=== PATIENT | female | born 1945 | race Caucasian/White ===

== ENCOUNTER → 2016-11-17 | Outpatient (CLI) | payer MEDICARE ==
[2016-11-17 14:55] LABS: ALT 30 U/L (9-52); AST 28 U/L (14-36); Alkaline Phosphatase 104 U/L (38-126); Anion Gap 8 mmol/L; Blood Urea Nitrogen 11 mg/dL (7-17); Calcium 9.8 mg/dL (8.4-10.2); Carbon Dioxide 30 mmol/L (22-30); Chloride 103 mmol/L (98-107); Glucose 78 mg/dL (74-99); Non-African American GFR(MDRD) >60 (>60 ml/min/1.73 sqM); Potassium 4.9 mmol/L (3.5-5.1); Sodium 141 mmol/L (137-145); Total Bilirubin 0.4 mg/dL (0.2-1.3)
[2016-11-20 15:35] LABS: Mis test requested (Blood) C TELOPEPTIDE CTX
[2016-11-20 17:50] LABS: Creatinine Urine Random 25.3 mg/dL (20.0-320.0)
== END ==
LOC: LABWHC1 14:14
PROVIDERS: ATTEND Internal Medicine Endocrinology, Diabetes & Metabolism
DX: M81.8 Other osteoporosis without current pathological fracture (principal)
CPT/HCPCS: 36415; 80053; 82306; 82523; 83970

== ENCOUNTER → 2017-05-31 | Outpatient (CLI) | payer MEDICARE ==
[2017-05-31 09:15] LABS: ALT 34 U/L (9-52); AST 28 U/L (14-36); Alkaline Phosphatase 94 U/L (38-126); Anion Gap 11 mmol/L; Blood Urea Nitrogen 13 mg/dL (7-17); Calcium 10.4 mg/dL (8.4-10.2); Carbon Dioxide 29 mmol/L (22-30); Chloride 103 mmol/L (98-107); Glucose 106 mg/dL (74-99); Non-African American GFR(MDRD) >60 (>60 ml/min/1.73 sqM); Potassium 4.8 mmol/L (3.5-5.1); Sodium 143 mmol/L (137-145); Total Bilirubin 0.2 mg/dL (0.2-1.3); Total Protein 7.5 g/dL (6.3-8.2)
== END | disposition home or self-care (01) ==
LOC: LABWHC1 08:10
PROVIDERS: ATTEND Internal Medicine Endocrinology, Diabetes & Metabolism
DX: R73.03 Prediabetes (principal); M81.0 Age-related osteoporosis without current pathological fracture
CPT/HCPCS: 36415; 80053; 82306; 82523; 83036; 83970; 84443

== ENCOUNTER → 2017-06-07 | Outpatient (CLI) | payer MEDICARE ==
[2017-06-07 16:38] LABS: Basophils # (A) 0.1 k/uL (0-0.2); Basophils % (A) 1 %; CHCM 31.4; Eosinophils # (A) 0.3 k/uL (0-0.7); Eosinophils % (A) 3 %; HCT 39.5 % (34.0-46.0); HDW 2.16; HGB 12.5 gm/dL (11.4-16.0); Luc # (Auto) 0.18; Luc % (Auto) 2; Lymphocytes # (A) 2.4 k/uL (1.0-4.8); Lymphocytes % (A) 32 %; MCH 29.3 pg (25.0-35.0); MCHC 31.6 g/dL (31.0-37.0); MCV 92.7 fL (80.0-100.0); Monocytes # (A) 0.6 k/uL (0-1.0); Monocytes % (A) 8 %; Neutrophils % (A) 54 %; RBC 4.26 m/uL (3.80-5.40); RDW 14.1 % (11.5-15.5); WBC 7.5 k/uL (3.8-10.6); WBC (Perox) 7.44
== END | disposition home or self-care (01) ==
LOC: LABWHC1 15:34
PROVIDERS: ATTEND Internal Medicine
DX: J45.51 Severe persistent asthma with (acute) exacerbation (principal); E88.01 Alpha-1-antitrypsin deficiency
CPT/HCPCS: 36415; 82103; 82104; 85025

== ENCOUNTER → 2017-09-08 | Outpatient (CLI) | payer MEDICARE ==
[2017-09-08 16:47] LABS: ALT 31 U/L (9-52); AST 32 U/L (14-36); Albumin 4.6 g/dL (3.5-5.0); Alkaline Phosphatase 142 U/L (38-126); Anion Gap 13 mmol/L; Blood Urea Nitrogen 16 mg/dL (7-17); Calcium 10.1 mg/dL (8.4-10.2); Carbon Dioxide 30 mmol/L (22-30); Chloride 97 mmol/L (98-107); Glucose 83 mg/dL (74-99); Potassium 4.8 mmol/L (3.5-5.1); Sodium 140 mmol/L (137-145); Total Bilirubin 0.3 mg/dL (0.2-1.3); Total Protein 7.8 g/dL (6.3-8.2)
[2017-09-09 00:57] LABS: Vitamin D 25 Hydroxy 38.4 ng/mL (30.0-100.0)
[2017-09-09 01:02] LABS: Parathyroid Hormone Intact 35.4 pg/mL (14.0-72.0)
[2017-09-11 17:05] LABS: Creatinine Urine Random 43.5 mg/dL (20.0-320.0)
== END | disposition home or self-care (01) ==
LOC: LABWHC1 15:41
PROVIDERS: ATTEND Internal Medicine Endocrinology, Diabetes & Metabolism
DX: M81.0 Age-related osteoporosis without current pathological fracture (principal)
CPT/HCPCS: 36415; 80053; 82306; 82523; 83970; 84443

== ENCOUNTER 2017-11-26 05:58 | Day surgery (SDC) | payer MEDICARE ==
[2017-11-23 15:17] VITALS: BMI 37.3
--- NOTE | 2017-11-25 08:44 | HP ---
HISTORY AND PHYSICAL CHIEF COMPLAINT: Right shoulder pain. HISTORY OF PRESENT ILLNESS: The patient is a 72-year-old, right-hand dominant, retired female who presents with progressive right shoulder pain after a previous fall in September of 2009 off a ladder. She is having pain with overhead use and at night. She has tried medications and injections with only partial temporary relief. PAST MEDICAL HISTORY: Significant for heart disease, depression, arthritis, hypertension, and asthma. PAST SURGICAL HISTORY: Significant for right total knee arthroplasty. CURRENT MEDICATIONS: Advair, Carvedilol, Lasix, Aleve, Forteo. ALLERGIES: She notes allergies to AMOXICILLIN and BROMO QUININE. FAMILY HISTORY: Significant for heart disease and cancer. SOCIAL HISTORY: Significant for previous tobacco use; however, she quit in 2002. 16 POINT REVIEW OF SYSTEMS: Otherwise reviewed and is noncontributory. PHYSICAL EXAMINATION: The patient is approximately 5 foot 5, 230 pounds of endomorphic habitus. HEENT exam is nonfocal. Neck is supple. On examination of her right shoulder, she has tenderness about the anterior subacromial space. She has mild subacromial crepitus. Active range of motion, forward elevation 150 degrees, external rotation with the arm side 65 degrees, internal rotation to T12. Motor strength is 5-/5 for external rotation with the arms at side, 4+/5 for abduction. Impingement test and Speed tests are positive. Her distal neurovascular exam otherwise appears intact in the right upper extremity. MRI report for the right shoulder from 10/22/2017 shows a tear of the supraspinatus tendon along with some retraction. There is also partial infraspinatus tear and a possible biceps rupture. IMPRESSION: 1. Right shoulder impingement with symptomatic rotator cuff tear. 2. Right shoulder possible biceps rupture. RECOMMENDATIONS: I talked to the patient regarding her condition and her treatment options. At this point, she remains quite symptomatic despite conservative measures. After a thorough discussion, she opts to proceed with surgery. We will plan to proceed with arthroscopic evaluation with possible subacromial decompression, rotator cuff repair, and possible biceps tenotomy versus debridement. Risks and benefits were discussed at length in layman's terms. We will likely perform that as an outpatient procedure. MMODL / IJN: [id number] /
[~2017-11-26 05:58] MED LIST: DEXAMETHASONE SOD PHOSPHATE 10 MG/ML 1 ML VIAL IV ONE; LACTATED RINGERS 1,000 ML IV SCH; MIDAZOLAM 2 MG/2 ML VIAL IV PRN; MORPHINE SULFATE 4 MG/ML SYRINGE IV PRN; ONDANSETRON 4 MG/2 ML VIAL IVP ONE; SCOPOLAMINE 1.5MG/72HR PATCH TRANSDERM ONE; ceFAZolin IN SWFI 2 GM/20 ML SYRINGE IVP ONE
[2017-11-26] MEDS ORDERED: LIDOCAINE 1% 20 ML VIAL (10MG/ML) FOR IV START INTRADERMA ONE (06:46)
[2017-11-26 06:48] LABS: Glucose,Whole Blood 107 mg/dL (75-99)
[2017-11-26 07:13] LABS: Potassium 4.5 mmol/L (3.5-5.1)
[2017-11-26] MEDS ORDERED: HYDROCORTISONE SUCCINATE 100 MG/2 ML VIAL IV ONE (07:16)
[2017-11-26] MEDS ORDERED: PROPOFOL 10 MG/ML 20 ML VIAL IV ONE (07:53)
[2017-11-26] MEDS ORDERED: MIDAZOLAM 2 MG/2 ML VIAL ONE (07:53)
[2017-11-26] MEDS ORDERED: SUCCINYLCHOLINE CHLORIDE 100 MG/5 ML SYR IV ONE (07:53)
[2017-11-26] MEDS ORDERED: LIDOCAINE 1% INJ 10MG/ML (20 ML MDV) ONE (07:53)
[2017-11-26] MEDS ORDERED: ePHEDrine SULFATE/0.9% NACL/PF 50 MG/5 ML SYRINGE IV ONE (07:53)
[2017-11-26] MEDS ORDERED: PHENYLEPHRINE-0.9% NACL SYG 1 MG/10 ML SYRINGE ONE (07:53)
[2017-11-26] MEDS ORDERED: fentaNYL (PF) 50 MCG/ML 2 ML AMP ONE (07:53)
[2017-11-26] MEDS ORDERED: EPINEPHrine (PF) 1 ML in SODIUM CHLORIDE 0.9% IRRIGATIO 3,000 ML IRRIGATION ONE ×7 (08:28→08:29)
--- NOTE | 2017-11-26 09:22 | P.OP ---
Date of Procedure: 11/26/17 Preoperative Diagnosis: Right shoulder symptomatic rotator cuff tear Postoperative Diagnosis: 4 cm right rotator cuff tear, rupture long head of the biceps, grade 2 chondral injury superior humeral head Procedure(s) Performed: Right shoulder arthroscopic subacromial decompression/arthroscopic rotator cuff repair/humeral head chondroplasty/biceps debridement Implants: Arthrex 4.75 mm swivel lock anchor 4 Anesthesia: [facility], [facility] Surgeon: Bobby Garcia Fruit Worker #1: Rick Rudolph Estimated Blood Loss (ml): 10 Pathology: none sent Condition: stable Disposition: PACU Indications for Procedure: The patient's a 72-year-old female who presents with progressive right shoulder pain secondary to a rotator cuff tear despite conservative measures. A discussion of the risks and benefits of operative intervention versus continued conservative measures was made with the patient. She opted to proceed with surgery. Operative risks to include infection, neurovascular injury, development of blood clots, possible tendon rerupture, and possible need for subsequent procedures was discussed. Informed consent was obtained. Operative Findings: As below Description of Procedure: The patient was brought to the operating room, and after induction of general anesthesia was placed in a beachchair position. The bony prominences were appropriately padded. I examined the right shoulder. There was no gross block to passive motion. There was no gross glenohumeral instability. The right upper extremity was prepped and draped in a normal fashion. The bony outlines the acromion, coracoid process, distal clavicle were outlined with a skin marker. The glenohumeral joint was inflated with 50 mL of saline utilizing a spinal needle from posterior approach. A posterior portal was made through a 5 mm skin incision 1 cm medial and inferior to the posterior lateral border of the acromion. A blunt trocar was used to easily into the joint. Diagnostic arthroscopy was performed. An anterior portal was made lateral to the coracoid process entering the joint above the subscapularis tendon. The subscapularis tendon appear to be intact. The long head of the biceps appear to be ruptured involving the intra-articular portion. The remnant was debrided back to stable base with a motorized shaver. A grade 2 chondral injury was noted involving the superior/posterior portion of the humeral head. There was a loose chondral fragment debrided back to stable base with a motorized shaver. The anterior labrum was intact. Minimal degenerative changes were noted involving the glenohumeral joint. The tibial cuff was inspected, and the supraspinatus/infraspinatus was ruptured with mild retraction off the greater tuberosity. The posterior portion cuff appeared intact. The inferior recess was inspected. The arthroscope was then placed into the subacromial space. A lateral portals made through a 5 mm skin incision 2 cm lateral to the anterolateral border acromion. The soft tissue on the undersurface of the acromion was debrided with a motorized shaver and with electrocautery clearly defining the anterior medial and lateral borders as well as distal clavicle. An anterior inferior acromioplasty is performed with a motorized monica starting anterolateral, then extending this posteriorly, then extending this medially. Is able to convert to a flat acromion. This is verified from the posterior and lateral viewing portals. The greater tuberosity was lightly decorticated with a motorized bur down to bleeding bony surface. The rotator cuff was easily brought back to the greater tuberosity mobilized. An accessory superior lateral portal was made through a 5 mm skin incision just off the lateral edge of the acromion. The appropriate starting awl was utilized just off the articular surface. 4.75 mm anchors were then placed just off the articular surface. Loaded with #2 fiber tape. 2 anchors were utilized. The fiber tape was then passed through the rotator cuff with a scorpion suture passer. These were then crisscrossed and a lateral row was created utilizing 2 4.75 millimeters anchor. The sutures were appropriately tensioned. Good purchase was obtained. Final arthroscopic view showed adequate compression of the rotator cuff on the greater tuberosity and the zuni footprint. The arthroscope was then removed. The portals were closed with simple 3-0 nylon suture. A sterile dressing was applied in addition to an abductor brace. The patient was then awoken from general anesthesia and transferred to recovery room in good condition. Blood loss was estimated at 10 mL. No complications were incurred. Sponge and needle counts were correct at the end of the case.
[2017-11-26 09:34] VITALS: TEMP 96.9
[2017-11-26 09:36] VITALS: RESP 16
[2017-11-26] MEDS: MEPERIDINE 50 MG/ML SYRINGE IVP ONE ×2 (09:40→10:04)
[2017-11-26] MEDS ORDERED: diphenhydrAMINE 50 MG/ML 1 ML VIAL IVP ONE (09:41)
[2017-11-26 10:36] LABS: Glucose,Whole Blood 143 mg/dL (75-99)
[2017-11-26] MEDS ORDERED: HYDROcodone/APAP 7.5-325MG 1 EACH TAB PO ONE (10:56)
[2017-11-26 11:23] VITALS: BP 113/76; PULSE 69
== END 2017-11-26 11:47 | disposition home or self-care (01) ==
LOC: OR 05:58
PROVIDERS: ATTEND Orthopaedic Surgery
DX: M75.101 Unspecified rotator cuff tear or rupture of right shoulder, not specified as traumatic (principal); S46.111A Strain of muscle, fascia and tendon of long head of biceps, right arm, initial encounter; M25.811 Other specified joint disorders, right shoulder; M75.41 Impingement syndrome of right shoulder; M94.211 Chondromalacia, right shoulder; Z88.0 Allergy status to penicillin; J44.9 Chronic obstructive pulmonary disease, unspecified; I10 Essential (primary) hypertension; Z99.81 Dependence on supplemental oxygen; K21.9 Gastro-esophageal reflux disease without esophagitis; Z79.1 Long term (current) use of non-steroidal anti-inflammatories (NSAID); Z79.52 Long term (current) use of systemic steroids; Z79.899 Other long term (current) drug therapy; F32.9 Major depressive disorder, single episode, unspecified; M19.90 Unspecified osteoarthritis, unspecified site; Z96.651 Presence of right artificial knee joint; Z88.8 Allergy status to other drugs, medicaments and biological substances; Z87.891 Personal history of nicotine dependence
CPT/HCPCS: 80051; 29827; 29826; 29822; C1713 ×2; C1894; J2250; J1200; J1100; J1720; J2175; J2405; J0171; J2001; J3010; J2370; J0330; J2704; J0690

== ENCOUNTER → 2017-12-22 | Outpatient (CLI) | payer MEDICARE ==
[2017-12-22 09:27] LABS: ALT 32 U/L (9-52); AST 27 U/L (14-36); Albumin 4.4 g/dL (3.5-5.0); Alkaline Phosphatase 95 U/L (38-126); Anion Gap 13 mmol/L; Blood Urea Nitrogen 12 mg/dL (7-17); Carbon Dioxide 29 mmol/L (22-30); Chloride 100 mmol/L (98-107); Glucose 103 mg/dL (74-99); Potassium 4.7 mmol/L (3.5-5.1); Sodium 142 mmol/L (137-145); Total Bilirubin 0.3 mg/dL (0.2-1.3); Total Protein 7.2 g/dL (6.3-8.2)
[2017-12-22 15:45] LABS: Parathyroid Hormone Intact 30.8 pg/mL (14.0-72.0)
[2017-12-22 17:04] LABS: Vitamin D 25 Hydroxy 28.4 ng/mL (30.0-100.0)
[2017-12-22 17:33] LABS: Hemoglobin A1C 6.3 % (4.0-6.0)
== END | disposition home or self-care (01) ==
LOC: LABWHC1 08:10
PROVIDERS: ATTEND Internal Medicine Endocrinology, Diabetes & Metabolism
DX: M81.0 Age-related osteoporosis without current pathological fracture (principal); R73.03 Prediabetes
CPT/HCPCS: 36415; 80053; 82306; 82523; 83036; 83970; 84443

== ENCOUNTER 2018-02-25 09:54 | Day surgery (SDC) | payer MEDICARE ==
[2018-02-24 10:00] VITALS: BMI 37.5
--- NOTE | 2018-02-24 10:41 | HP ---
HISTORY AND PHYSICAL CHIEF COMPLAINT: Right fifth digit pain. HISTORY OF PRESENT ILLNESS: The patient is a 72-year-old, right-hand dominant, retired female, who presents after falling injuring her right hand on 02/22/2018. She fell off her riding elephant keeper in her yard. She had initial deformity of her finger. Her primary care physician tried to realign this. She denies previous injury. PAST MEDICAL HISTORY: Significant for heart disease, asthma, depression, arthritis, and hypertension. PAST SURGICAL HISTORY: Significant for right total knee arthroplasty along with recent right shoulder surgery. FAMILY HISTORY: Significant for heart disease and cancer. SOCIAL HISTORY: Significant for previous tobacco use; however, she quit in 2002. CURRENT MEDICATIONS: 1. Advair. 2. Carvedilol. 3. Lasix. 4. Aleve. 5. Forteo. She has allergies to AMOXICILLIN and BROMO QUININE. PHYSICAL EXAMINATION: Patient is approximately 5 foot 5, 233 pounds of endomorphic habitus. HEENT exam is nonfocal. Neck is supple. She is nontender about the right shoulder, elbow and wrist. On examination of right hand, she has moderate/large dorsal swelling over the fourth and fifth digits. She is tender over the proximal phalanx of the fifth digit with ulnar deviation angulation of the distal aspect. No rotational abnormalities noted. She has moderate digital stiffness and weakness. Her distal neurovascular exam appears intact in the right digits. X-rays of the right hand obtained in the office show a fifth digit, proximal phalanx fracture with significant angulation and displacement. IMPRESSION: Right ring finger proximal phalanx fracture-displaced and angulated. RECOMMENDATIONS: I talked to the patient regarding her condition and treatment options. At this point, she opts to proceed with surgery. We will plan to proceed with closed reduction with percutaneous pinning. We will likely perform that as an outpatient procedure. Risks and benefits were discussed at length in layman's terms. MMODL / IJN: [id number] /
[~2018-02-25 09:54] MED LIST changes: -LACTATED RINGERS 1,000 ML IV SCH; -MORPHINE SULFATE 4 MG/ML SYRINGE IV PRN; -SCOPOLAMINE 1.5MG/72HR PATCH TRANSDERM ONE; +fentaNYL (PF) 50 MCG/ML 2 ML AMP IV PRN
[2018-02-25 10:36] VITALS: TEMP 98.1
[2018-02-25] MEDS ORDERED: LIDOCAINE 1% 20 ML VIAL (10MG/ML) FOR IV START INTRADERMA ONE (10:50)
[2018-02-25] MEDS: LACTATED RINGERS 1,000 ML IV SCH ×2 (10:51→11:26)
[2018-02-25 10:57] LABS: Glucose,Whole Blood 92 mg/dL (75-99)
[2018-02-25] MEDS ORDERED: KETAMINE 10 MG/ML 20 ML VIAL ONE (11:28)
[2018-02-25] MEDS ORDERED: PROPOFOL 10 MG/ML 20 ML VIAL IV ONE (11:28)
[2018-02-25] MEDS ORDERED: fentaNYL (PF) 50 MCG/ML 2 ML AMP ONE (11:28)
[2018-02-25] MEDS ORDERED: GLYCOPYRROLATE 0.2 MG/ML 2 ML VIAL ONE (11:28)
[2018-02-25] MEDS ORDERED: MIDAZOLAM 2 MG/2 ML VIAL ONE (11:28)
--- NOTE | 2018-02-25 12:13 | P.OP ---
Date of Procedure: 02/25/18 Preoperative Diagnosis: Right fifth digit displaced proximal phalanx fracture Postoperative Diagnosis: Same Procedure(s) Performed: Closed reduction with percutaneous pinning right fifth digit proximal phalanx fracture/digital block right fifth digit Implants: 0.045 inch K wire 2 Anesthesia: MAC, local Surgeon: Bobby Garcia Estimated Blood Loss (ml): 1 Pathology: none sent Condition: stable Disposition: PACU Indications for Procedure: The patient is a 72-year-old female who presents after falling injuring her right hand with a displaced right fifth digit proximal phalanx fracture. A discussion of the risks and benefits of conservative measures versus operative intervention was made with patient. She opted to proceed with surgery. Operative risks to include infection, neurovascular injury, development of nonunion, development of malunion, and possible need for subsequent procedures was discussed. Informed consent was obtained. Operative Findings: As below Description of Procedure: The patient was brought to the operating room, and after induction of IV sedation, I placed a digital block in the right fifth digit utilizing 10 mL of 2 % plain lidocaine. The right upper extremity was then prepped and draped in normal fashion. The fracture was reduced with longitudinal traction and manipulation. This is verified with fluoroscopy. 2 K wires measuring 0.045 inch in diameter were then placed in the proximal phalanx starting distally spanning the fracture site. Final fluoroscopic views to include AP, lateral and oblique views showed adequate reduction of the fracture and placement of the implants. The pins were clipped below the level skin. A sterile dressing was applied in addition to an ulnar gutter splint. The patient was then awoken from sedation and transferred to recovery room in good condition. Blood loss estimated at 1 mL. No complications were incurred.
[2018-02-25 12:25] VITALS: BP 118/74; PULSE 78; RESP 18
--- NOTE | 2018-02-25 14:15 | FL ---
EXAMINATION TYPE: FL guidance operating room, XR finger RT DATE OF EXAM: 02/25/2018 COMPARISON: NONE HISTORY: 72-year-old female fifth finger fracture FINDINGS: Percutaneous pinning across the patient's fifth proximal phalangeal fracture. FLUOROSCOPY Fluoroscopy time of 36 seconds was used during percutaneous finger pinning. 3 image/s document/s the procedure. IMPRESSION: Intraoperative fluoroscopy as above.
== END 2018-02-25 12:41 | disposition home or self-care (01) ==
LOC: OR 09:54
PROVIDERS: ATTEND Orthopaedic Surgery
DX: S62.616A Displaced fracture of proximal phalanx of right little finger, initial encounter for closed fracture (principal); W28.XXXA Contact with powered lawn mower, initial encounter; Y92.096 Garden or yard of other non-institutional residence as the place of occurrence of the external cause; I11.9 Hypertensive heart disease without heart failure; F32.9 Major depressive disorder, single episode, unspecified; M19.90 Unspecified osteoarthritis, unspecified site; J44.9 Chronic obstructive pulmonary disease, unspecified; E11.9 Type 2 diabetes mellitus without complications; F41.9 Anxiety disorder, unspecified; K21.9 Gastro-esophageal reflux disease without esophagitis; Z79.1 Long term (current) use of non-steroidal anti-inflammatories (NSAID); Z79.84 Long term (current) use of oral hypoglycemic drugs; Z79.51 Long term (current) use of inhaled steroids; Z79.899 Other long term (current) drug therapy; Z88.0 Allergy status to penicillin; Z88.8 Allergy status to other drugs, medicaments and biological substances; Z90.710 Acquired absence of both cervix and uterus; Z87.891 Personal history of nicotine dependence
CPT/HCPCS: 73140; 26727; C1713; J2250; J1100; J2405; J3010; J2704; J0690

== ENCOUNTER 2018-04-15 10:02 | Day surgery (SDC) | payer MEDICARE ==
[2018-04-11 16:13] VITALS: BMI 37.5
--- NOTE | 2018-04-14 10:28 | HP ---
HISTORY AND PHYSICAL CHIEF COMPLAINT: Right small finger pain. HISTORY OF PRESENT ILLNESS: The patient is a 73-year-old, right-hand dominant, retired female who underwent closed reduction and pinning of a right small finger proximal phalanx fracture February 25, 2018. Clinically, she was noted at the night of the fracture; however, having has irritation secondary to the hardware. PAST MEDICAL HISTORY: Significant for heart disease, asthma, depression, hypertension, and arthritis. PAST SURGICAL HISTORY: Significant for right total knee arthroplasty in addition to closed reduction and pinning, right small finger proximal phalanx fracture. CURRENT MEDICATIONS: 1. Lasix. 2. Aleve. 3. Forteo. 4. Advair. ALLERGIES: She notes allergies to AMOXICILLIN and BROMO QUININE. FAMILY HISTORY: Significant for heart disease and cancer. SOCIAL HISTORY: Significant for previous tobacco use; however, she quit in 2002. 16 POINT REVIEW OF SYSTEMS: Otherwise reviewed and is noncontributory. PHYSICAL EXAMINATION: On examination, the patient is approximately 5 foot 5, 233 pounds of endomorphic habitus. HEENT exam is nonfocal. Neck is supple. She is nontender about the right shoulder, elbow, and wrist. On examination of her right hand, she has mild swelling of the right fifth digit. She is tender over the dorsal pins over the proximal phalanx. She has moderate digital stiffness. No rotational abnormalities noted. X-rays of the right small finger obtained in the office show a fifth digit proximal phalanx fracture in reasonable alignment with [address] IMPRESSION: 1. Status post closed reduction and pinning, right fifth digit proximal phalanx fracture. 2. Irritating hardware, right fifth digit. RECOMMENDATIONS: I talked to the patient at length regarding her condition and treatment options. At this point, she is symptomatic and opts to proceed with removal of her hardware. We will likely perform that utilizing local anesthetic and IV sedation as an outpatient procedure. MMODL / IJN: [id number] /
[~2018-04-15 10:02] MED LIST changes: -DEXAMETHASONE SOD PHOSPHATE 10 MG/ML 1 ML VIAL IV ONE; +HYDROmorphone 0.5 MG/0.5 ML SYRINGE IVP PRN; +LACTATED RINGERS 1,000 ML IV SCH; +LIDOCAINE 1% 20 ML VIAL (10MG/ML) FOR IV START INTRADERMA PRN; -MIDAZOLAM 2 MG/2 ML VIAL IV PRN; -fentaNYL (PF) 50 MCG/ML 2 ML AMP IV PRN
[2018-04-15 10:22] VITALS: RESP 18; TEMP 98.3
[2018-04-15 10:29] LABS: Glucose,Whole Blood 94 mg/dL (75-99)
[2018-04-15] MEDS ORDERED: KETAMINE 10 MG/ML 20 ML VIAL ONE (11:31)
[2018-04-15] MEDS ORDERED: PROPOFOL 10 MG/ML 20 ML VIAL IV ONE (11:31)
[2018-04-15] MEDS ORDERED: MIDAZOLAM 2 MG/2 ML VIAL ONE (11:31)
[2018-04-15] MEDS ORDERED: fentaNYL (PF) 50 MCG/ML 2 ML AMP ONE (11:31)
[2018-04-15] MEDS ORDERED: LIDOCAINE 2% INJ 20 MG/ML SQ ONE ×2 (11:42)
--- NOTE | 2018-04-15 11:56 | P.OP ---
Date of Procedure: 04/15/18 Preoperative Diagnosis: Irritative hardware right fifth digit Postoperative Diagnosis: Same Procedure(s) Performed: Removal K wire 2 right fifth digit proximal phalanx Anesthesia: MAC, local Surgeon: Bobby Garcia Estimated Blood Loss (ml): 1 Pathology: none sent Condition: stable Disposition: PACU Indications for Procedure: The patient's a 73-year-old female who previously underwent closed reduction with percutaneous pinning of her right fifth digit proximal phalanx fracture with subsequent healing the fracture however irritation because of the hardware. A discussion of the risks and benefits of its removal was made with patient. She opted to proceed. Operative risks were discussed, informed consent was obtained. Operative Findings: As below Description of Procedure: The patient was brought to the operating room, and after induction of IV sedation the right upper extremity was prepped and draped in normal fashion. 2 mL of 2% plain lidocaine injected into the right fifth digit along its dorsum. 2 small stab incisions were made along the dorsum of the PIP joint over the palpable hardware. The soft tissues were bluntly dissected. Both K wires were easily removed. The wounds were irrigated normal saline. The skin was reapproximated with Steri-Strips. A sterile dressing was applied. The patient was awoken from sedation and transferred to the recovery room in good condition. Blood loss was estimated at 1 mL. No complications were incurred.
[2018-04-15 12:33] VITALS: BP 115/68; PULSE 71
== END 2018-04-15 12:43 | disposition home or self-care (01) ==
LOC: OR 10:02
PROVIDERS: ATTEND Orthopaedic Surgery
DX: T84.89XA Other specified complication of internal orthopedic prosthetic devices, implants and grafts, initial encounter (principal); I10 Essential (primary) hypertension; F32.9 Major depressive disorder, single episode, unspecified; K21.9 Gastro-esophageal reflux disease without esophagitis; J44.9 Chronic obstructive pulmonary disease, unspecified; E11.9 Type 2 diabetes mellitus without complications; M19.90 Unspecified osteoarthritis, unspecified site; Z79.899 Other long term (current) drug therapy; Z79.51 Long term (current) use of inhaled steroids; Z79.1 Long term (current) use of non-steroidal anti-inflammatories (NSAID); Y83.8 Other surgical procedures as the cause of abnormal reaction of the patient, or of later complication, without mention of misadventure at the time of the procedure; Z88.0 Allergy status to penicillin; Z88.8 Allergy status to other drugs, medicaments and biological substances; Z87.891 Personal history of nicotine dependence; Z79.84 Long term (current) use of oral hypoglycemic drugs; Z96.651 Presence of right artificial knee joint
CPT/HCPCS: 26320; J2001; J2250; J2405; J3010; J2704; J0690

== ENCOUNTER → 2018-05-18 | Outpatient (CLI) | payer MEDICARE ==
[2018-05-18 11:43] LABS: Albumin 4.4 g/dL (3.80-4.90); Albumin/Globulin Ratio 1.91 (1.20-2.10); Anion Gap 11.8 mmol/L (4.00-12.00); Carbon Dioxide 28.2 mmol/L (21.6-31.8); Globulin 2.3 g/dL (2.1-3.7); Potassium 4.9 mmol/L (3.5-5.5); Total Bilirubin 0.4 mg/dL (0.2-1.2); Total Protein 6.7 g/dL (6.2-8.2)
[2018-05-18 11:49] LABS: Vitamin D 25 Hydroxy 37.4 ng/mL (30.0-100.0)
== END | disposition home or self-care (01) ==
LOC: LABWHC1 07:06
PROVIDERS: ATTEND Internal Medicine Endocrinology, Diabetes & Metabolism
DX: E11.9 Type 2 diabetes mellitus without complications (principal); M81.0 Age-related osteoporosis without current pathological fracture
CPT/HCPCS: 36415; 80053; 82306; 82523; 83970; 84443

== ENCOUNTER → 2018-11-26 | Outpatient (CLI) | payer MEDICARE ==
[2018-11-26 17:28] LABS: Vitamin D 25 Hydroxy 48.7 ng/mL (30.0-100.0)
[2018-11-26 17:47] LABS: Parathyroid Hormone Intact 26.9 pg/mL (14.0-72.0)
[2018-11-26 18:11] LABS: Albumin 4.5 g/dL (3.80-4.90); Albumin/Globulin Ratio 1.96 (1.60-3.17); Anion Gap 9.4 mmol/L (4.00-12.00); Calcium 9.7 mg/dL (8.7-10.3); Carbon Dioxide 28.6 mmol/L (21.6-31.8); Globulin 2.3 g/dL (1.6-3.3); LDL Cholesterol,Calculated 107.2 mg/dL (0.0-131.0); Potassium 4.6 mmol/L (3.5-5.5); Total Bilirubin 0.3 mg/dL (0.3-1.2); Total Protein 6.8 g/dL (6.2-8.2); VLDL Calculation 31.8 mg/dL (5.00-40.00)
[2018-11-26 20:25] LABS: Hemoglobin A1C 6.2 % (4.0-6.0)
== END | disposition home or self-care (01) ==
LOC: LABWHC1 08:46
PROVIDERS: ATTEND Internal Medicine Endocrinology, Diabetes & Metabolism
DX: E11.9 Type 2 diabetes mellitus without complications (principal); M81.0 Age-related osteoporosis without current pathological fracture
CPT/HCPCS: 36415; 80053; 80061; 82043; 82306; 82523; 82570; 83036; 83970; 84443

== ENCOUNTER → 2019-03-23 | Outpatient (CLI) | payer MEDICARE ==
[2019-03-23 16:02] LABS: Albumin 4.5 g/dL (3.80-4.90); Albumin/Globulin Ratio 2.14 (1.60-3.17); Anion Gap 7.4 mmol/L (4.00-12.00); Calcium 9.4 mg/dL (8.7-10.3); Carbon Dioxide 29.6 mmol/L (21.6-31.8); Globulin 2.1 g/dL (1.6-3.3); LDL Cholesterol,Calculated 58.8 mg/dL (0.0-131.0); Potassium 4.7 mmol/L (3.5-5.5); Total Bilirubin 0.4 mg/dL (0.3-1.2); Total Protein 6.6 g/dL (6.2-8.2); VLDL Calculation 31.2 mg/dL (5.00-40.00)
[2019-03-23 18:46] LABS: Hemoglobin A1C 6.1 % (4.0-6.0)
== END | disposition home or self-care (01) ==
LOC: LABWHC1 09:34
PROVIDERS: ATTEND Internal Medicine Endocrinology, Diabetes & Metabolism
DX: E11.9 Type 2 diabetes mellitus without complications (principal)
CPT/HCPCS: 36415; 80053; 80061; 82043; 82570; 83036; 84443

== ENCOUNTER → 2019-04-27 | Outpatient (CLI) | payer MEDICARE ==
[~2019-04-27] MED LIST changes: +DENOSUMAB 60 MG/ML 1 ML SYRINGE SQ ONE; -HYDROmorphone 0.5 MG/0.5 ML SYRINGE IVP PRN; -LACTATED RINGERS 1,000 ML IV SCH; -LIDOCAINE 1% 20 ML VIAL (10MG/ML) FOR IV START INTRADERMA PRN; -ONDANSETRON 4 MG/2 ML VIAL IVP ONE; -ceFAZolin IN SWFI 2 GM/20 ML SYRINGE IVP ONE
[2019-04-27 13:48] VITALS: BP 156/97; PULSE 70; RESP 16; TEMP 98.1
== END | disposition home or self-care (01) ==
LOC: PROCWHC3 13:31
PROVIDERS: ATTEND Internal Medicine Endocrinology, Diabetes & Metabolism
DX: M81.0 Age-related osteoporosis without current pathological fracture (principal)
CPT/HCPCS: 96372; J0897

== ENCOUNTER → 2019-07-31 | Outpatient (CLI) | payer MEDICARE | END | disposition home or self-care (01) | LOC: LABPAT 15:17 | PROVIDERS: ATTEND Orthopaedic Surgery | DX: Z01.812 Encounter for preprocedural laboratory examination (principal) | CPT/HCPCS: 87070 ==

== ENCOUNTER 2019-08-08 09:10 | Day surgery (SDC) | payer MEDICARE ==
[2019-08-01 15:48] VITALS: BMI 37.6
--- NOTE | 2019-08-05 10:31 | HP ---
HISTORY AND PHYSICAL CHIEF COMPLAINT: Left knee pain. HISTORY OF PRESENT ILLNESS: The patient is a 74-year-old retired female who presents with progressive left knee pain for the past several years. It has worsened recently. She is having severe anterior medial pain with weightbearing activities. She also notes night symptoms. She has been limping. She has tried medications and activity modifications without much relief. PAST MEDICAL HISTORY: Significant for asthma, coronary artery disease, depression, hypertension, and arthritis. PAST SURGICAL HISTORY: Significant for right total knee arthroplasty, finger fracture fixation. CURRENT MEDICATIONS: 1. Advair. 2. Lasix. 3. Aleve. 4. Forteo. 5. Paroxetine. ALLERGIES: She has allergies to AMOXICILLIN along with BROMO QUININE. FAMILY HISTORY: Significant for heart disease, COPD, and cancer. SOCIAL HISTORY: Significant for previous tobacco use, however, she quit in 2002. REVIEW OF SYSTEMS: Sixteen-point review of systems otherwise reviewed and is noncontributory. PHYSICAL EXAMINATION: On examination, the patient is approximately 5 feet 5 inches, 240 pounds of endomorphic habitus. HEENT exam is nonfocal. Neck is supple. She has painless passive motion of the left hip. Straight leg raise is negative. Active motion left knee -10 to 120 degrees of flexion. She has a moderate effusion. She is tender about the medial joint line. Collaterals are stable, Danuta is negative, Kandice's is equivocal. She has genu varum alignment. Her distal neurovascular exam appears intact in the left lower extremity. Previous weightbearing notch lateral and Merchant views of left knee obtained in the office show severe medial patellofemoral compartment narrowing. IMPRESSION: 1. Left knee severe medial patellofemoral compartment osteoarthrosis. I. 2. Increased body mass index. RECOMMENDATIONS: I talked to the patient at length regarding her condition and treatment options. At this point, she is quite symptomatic despite conservative measures. After thorough discussion, she opts to proceed with surgery. We will plan to proceed with left total knee arthroplasty. Risks and benefits were discussed at length in layman's terms. We will institute DVT prophylaxis postoperatively. MMODL / IJN: [id number] /
[~2019-08-08 09:10] MED LIST changes: +ACETAMINOPHEN TAB 500 MG TAB PO ONE; -DENOSUMAB 60 MG/ML 1 ML SYRINGE SQ ONE; +DEXAMETHASONE SOD PHOSPHATE 10 MG/ML 1 ML VIAL IV ONE; +HYDROmorphone 0.5 MG/0.5 ML SYRINGE IVP PRN; +LIDOCAINE 1% 20 ML VIAL (10MG/ML) FOR IV START INTRADERMA PRN; +MELOXICAM 7.5 MG TAB PO ONE; +MIDAZOLAM 2 MG/2 ML VIAL IV PRN; +ONDANSETRON 4 MG/2 ML VIAL IVP ONE; +SCOPOLAMINE 1.5MG/72HR PATCH TRANSDERM ONE; +TRANEXAMIC ACID 1,000 MG in SODIUM CHLORIDE 0.9% 100 ML IVPB ONE
[2019-08-08] MEDS ORDERED: ROPIVACAINE 246.25 MG, EPINEPHrine 0.5 MG, KETOROLAC 30 MG, cloNIDine HCL/PF 80 MCG, WA... MISCELLANE ONE ×5 (09:55)
[2019-08-08] MEDS: LACTATED RINGERS 1,000 ML IV SCH (09:55)
[2019-08-08 09:56] LABS: Glucose,Whole Blood 110 mg/dL (75-99)
[2019-08-08 10:08] LABS: Prothrombin Time 10.1 sec (9.0-12.0)
[2019-08-08] MEDS ORDERED: fentaNYL (PF) 50 MCG/ML 2 ML AMP ONE (10:34)
[2019-08-08] MEDS ORDERED: LIDOCAINE 1% INJ 10MG/ML (20 ML MDV) ONE (10:34)
[2019-08-08] MEDS ORDERED: PROPOFOL 10 MG/ML 20 ML VIAL IV ONE (10:34)
[2019-08-08] MEDS ORDERED: TRANEXAMIC ACID 1,000 MG/10 ML VIAL ONE (10:34)
[2019-08-08] MEDS ORDERED: SODIUM CHLORIDE 0.9% 100 ML BAG ONE (10:34)
[2019-08-08] MEDS ORDERED: PHENYLEPHRINE-0.9% NACL SYG 1 MG/10 ML SYRINGE ONE (10:34)
[2019-08-08] MEDS ORDERED: MIDAZOLAM 2 MG/2 ML VIAL ONE (10:34)
[2019-08-08] MEDS ORDERED: ceFAZolin 3,000 MG in SODIUM CHLORIDE 0.9% IRRIGATIO 3,000 ML IRRIGATION ONE (11:06)
[2019-08-08] MEDS ORDERED: LACTATED RINGERS 1,000 ML IV ONE (11:55)
[2019-08-08] MEDS ORDERED: traMADol 50 MG TAB PO PRN (12:21)
[2019-08-08] MEDS ORDERED: ONDANSETRON 4 MG/2 ML VIAL IVP PRN (12:21)
[2019-08-08] MEDS ORDERED: MAGNESIUM HYDROXIDE 2,400 MG/10 ML CUP PO PRN (12:21)
[2019-08-08] MEDS ORDERED: NALOXONE 0.4 MG/ML 1 ML VIAL IV PRN (12:21)
[2019-08-08] MEDS ORDERED: HYDROmorphone 0.5 MG/0.5 ML SYRINGE IVP PRN ×2 (12:21)
[2019-08-08] MEDS ORDERED: HYDROcodone/APAP 5-325MG 1 EACH TAB PO PRN (12:21)
[2019-08-08] MEDS ORDERED: ACETAMINOPHEN TAB 325 MG TAB PO PRN (12:21)
--- NOTE | 2019-08-08 12:42 | P.OP ---
Date of Procedure: 08/08/19 Preoperative Diagnosis: Left knee severe tricompartmental osteoarthrosis Postoperative Diagnosis: Same Procedure(s) Performed: Left total knee arthroplastycementedposterior stabilized Implants: Depuy Attune size 6 neuro femoral component, 5 tibial component, 10 mm articular surface, 32 mm cemented patellar component. This is a posterior stabilized implant. Anesthesia: regional, local, spinal Surgeon: Bobby Garcia Shirt Creaser #1: Rick Rudolph Estimated Blood Loss (ml): 50 Pathology: other (Bone fragments) Condition: stable Disposition: PACU Indications for Procedure: The patient is a 74-year-old female who presents with progressive left knee pain secondary to osteoarthrosis despite conservative measures. A discussion of the risks and benefits of operative intervention versus continued conservative measures was made with patient. She opted proceed with surgery. Operative risks to include infection, neurovascular injury, development blood clots, fracture, component loosening, component failure and possible need for subsequent procedures was discussed. Informed consent was obtained. Operative Findings: As below Description of Procedure: The patient was brought to the operating room, and after induction of spinal anesthesia the left lower extremity was prepped and draped in a normal fashion. The tourniquet was inflated to 270 mm marker. A longitudinal incision extending 3 finger breaths above the superior pole of patella extending to the medial aspect the tibial tubercle was then made. The skin and subcutaneous tissues were divided sharply. Electrocautery was used for hemostasis. A medial parapatellar arthrotomy was performed. The medial soft tissues to include the superficial and deep portions of the medial collateral ligament were elevated subperiosteally. The patella was everted. A portion of the retropatellar fat pad was excised sharply. The anterior cruciate ligament was sacrificed. Blunt retractors were placed. A starting hole was made in the distal femur 1 cm anterior to the posterior cruciate ligament origin. An intramedullary femoral guide was then inserted planning on 5 valgus distal cut with 9 mm distal resection. The cutting block was pinned in place. The distal cut was then made. The posterior referencing sizing guide was utilized. I felt size 6 narrow was most appropriate. 3 of external rotation was built into the system and verified off the trans-epicondylar axis and the posterior condyles. The cutting block was pinned in place. The anterior, posterior, and chamfer cuts then made. Bone fragments were removed. The intercondylar guide was placed and the notch cut was made with a sagittal saw. The bone block was removed in one fragment. The trial component was then placed. There is good anterior to posterior and medial to lateral fit. The distal peg holes were drilled. The trial component was removed. Attention was then paid towards preparing the proximal femur. An extra medullary guide was utilized in line with the tibial shaft and second metatarsal distally. I planned on 2 mm resection from the medial compartment. The cutting block was pinned in place. The proximal tibial cut was then made. The bone was removed in one fragment. The remnants of the medial and lateral menisci were excised at the capsular junction with electrocautery. The tibia sized most appropriately at size 5. The trial femoral and tibial components were placed along with a 10 mm articular surface. I was able to obtain full flexion and extension with internal and external rotation. After several flexion and extension cycles, the tibial rotation was marked with electrocautery line with the medial one third of the tibial tubercle. Attention was then paid towards preparing the patella. A patella reamer was utilized taking stem to 14 mm of bone stock. A good flush cut was made. The patella sized most appropriately 32 mm. The peg holes were drilled. The trial components placed. I had good patellofemoral tracking with no hands technique. The trial components were then removed. The tibia was prepared in the appropriate rotation with appropriate drill and keel punch. The posterior osteophytes were removed with a curved osteotome. The flexion and extension gaps were checked and felt to be symmetric at 10 mm. A trial components were then removed. The posterior soft tissues were injected with ropivacaine. The bony surfaces were prepared with pulsatile lavage and dried. The tibial component was then cemented place was fully seated. Excess cement was removed. The femoral component cemented place and was fully seated. Excess cement was removed. The trial 10 mm articular surface was placed and the knee was put in full extension. The patella component was cemented place. After the cement had sufficiently hardened, the knee was again taken through a range of motion. Again I was able to obtain full flexion and extension with varus and valgus stress. The trial 10 mm articular surface was removed and the final one inserted. This was fully seated. Care was taken to avoid any soft tissue interposition. Pulsatile lavage was again utilized. The medial parapatellar arthrotomy was closed with #2 Ethibond suture. The tourniquet was deflated with approximately 65 minutes total tourniquet time. Final hemostasis was obtained with the cautery. There was minimal bleeding therefore a deep drain was not placed. The subcutaneous tissues were reapproximated with interrupted 2-0 Vicryl sutures. The skin was reapproximated with 3-0 subcuticular strata fix suture. Skin tape and adhesive was applied. A sterile dressing was applied. The patient was awoken from sedation and transferred to recovery room in good condition. Blood loss was estimated at 50 mL. No complications were incurred. Sponge and needle counts were correct at the end of the case. Willis BAH assisted during the major components of this case to include exposure, bone resection, implantation, and closure..
--- NOTE | 2019-08-08 13:02 | XR ---
EXAMINATION TYPE: XR knee limited LT DATE OF EXAM: 08/08/2019 COMPARISON: NONE TECHNIQUE: Two views submitted HISTORY: Post op FINDINGS: There is a prosthetic knee in near anatomic alignment. There is soft tissue edema and emphysema. IMPRESSION: 1. Postoperative change. Appears in near-anatomic alignment
[2019-08-08] MEDS ORDERED: ROPIVACAINE 0.2%-NS ON-Q PUMP 1,090 MG, EMPTY PAIN BALL 1 EACH MISCELLANE PRN (13:17)
[2019-08-08 13:33] LABS: Glucose,Whole Blood 152 mg/dL (75-99)
--- NOTE | 2019-08-08 14:12 | P.ANPRN ---
Procedure Note - Anesthesia - Nerve Block Performed Left Adductor Canal Infusion Time Out Performed: Yes ([id number]) Date of Procedure: 08/08/19 Procedure Start Time: 09:59 Procedure Stop Time: 10:07 Location of Patient: PreOp Indication: Acute Post-Operative Pain, Requested by Surgeon Specifically requested for management of pain by : Bobby Garcia Sedation Type: Sedate with meaningful contact maintained Preparation: Sterile Prep Position: Supine Catheter Depth at Skin (cm): 7 Catheter: Indwelling Needle Types: Pajunk Needle Gauge: 20 Ultrasound used to visualize needle placement: Yes Ultrasound used to observe medication spread: Yes Injectate: 0.5% Ropivacaine (see comment for volume) (20cc) Blood Aspirated: No Pain Paresthesia on Injection Noted: No Resistance on Injection: Normal Image Stored and Saved: Yes Events: Uneventful and Well Tolerated
[2019-08-08] MEDS: SODIUM CHLORIDE 0.9% 1,000 ML IV SCH (14:59)
[2019-08-08 16:47] LABS: Glucose,Whole Blood 170 mg/dL (75-99)
[2019-08-08 20:04] LABS: Glucose,Whole Blood 168 mg/dL (75-99)
[2019-08-08] MEDS: INSULIN ASPART (NovoLOG) 100 UNIT/ML VIAL SQ SCH (20:12)
[2019-08-08] MEDS: FLUTICASONE 50MCG/SPRAY NASAL 16GM EA NOSTRIL SCH (20:13)
[2019-08-08] MEDS: ALBUTEROL NEBULIZED 2.5 MG/3 ML INHALATION SCH (20:21)
[2019-08-08] MEDS: BUDESONIDE 0.5 MG/2 ML NEBU INHALATION SCH (20:21)
[2019-08-08] MEDS ORDERED: LATANOPROST 0.005% OPHTH DROPS 2.5 ML BTL BOTH EYES SCH (21:00)
[2019-08-08] MEDS ORDERED: SENNOSIDES-DOCUSATE SODIUM 1 EACH TAB PO SCH (21:00)
[2019-08-08] MEDS ORDERED: MONTELUKAST 10 MG TAB PO SCH (21:00)
[2019-08-08] MEDS ORDERED: SUCRALFATE 1 GM TAB PO SCH (21:00)
[2019-08-08] MEDS ORDERED: PANTOPRAZOLE 40 MG TABLET PO SCH (21:00)
[2019-08-08] MEDS: HYDROcodone/APAP 5-325MG 1 EACH TAB PO PRN (21:51)
[2019-08-09] MEDS: SODIUM CHLORIDE 0.9% 1,000 ML IV SCH (05:04)
[2019-08-09] MEDS: HYDROcodone/APAP 5-325MG 1 EACH TAB PO PRN ×2 (05:38→11:26)
[2019-08-09] MEDS: LACTATED RINGERS 1,000 ML IV SCH (06:59)
[2019-08-09 07:05] LABS: Glucose,Whole Blood 116 mg/dL (75-99)
[2019-08-09 07:06] LABS: Basophils % (A) 0 %; Eosinophils % (A) 0 %; HCT 34.3 % (34.0-46.0); HGB 10.6 gm/dL (11.4-16.0); Lymphocytes # (A) 1.4 k/uL (1.0-4.8); Lymphocytes % (A) 13 %; MCH 28.7 pg (25.0-35.0); MCHC 30.8 g/dL (31.0-37.0); MCV 93.2 fL (80.0-100.0); Mean Platelet Volume 6.9; Monocytes # (A) 0.6 k/uL (0-1.0); Monocytes % (A) 5 %; Neutrophils # (A) 8.6 k/uL (1.3-7.7); Neutrophils % (A) 80 %; Platelet Count 175 k/uL (150-450); RBC 3.68 m/uL (3.80-5.40); RDW 13.4 % (11.5-15.5); WBC 10.8 k/uL (3.8-10.6)
[2019-08-09] MEDS: INSULIN ASPART (NovoLOG) 100 UNIT/ML VIAL SQ SCH ×2 (07:14→11:59)
[2019-08-09 07:28] VITALS: BP 107/60; RESP 18; TEMP 97.8
[2019-08-09] MEDS ORDERED: CARVEDILOL 6.25 MG TAB PO SCH (07:30)
[2019-08-09] MEDS: FLUTICASONE 50MCG/SPRAY NASAL 16GM EA NOSTRIL SCH (07:36)
[2019-08-09] MEDS ORDERED: ERGOCALCIFEROL 50,000 UNIT CAP PO SCH (09:00)
[2019-08-09] MEDS ORDERED: RIVAROXABAN 10 MG TAB PO SCH (09:00)
[2019-08-09] MEDS ORDERED: ATORVASTATIN 10 MG TAB PO SCH (09:00)
[2019-08-09] MEDS ORDERED: LOSARTAN 50 MG TAB PO SCH (09:00)
[2019-08-09] MEDS ORDERED: FUROSEMIDE 20 MG TAB PO SCH (09:00)
[2019-08-09] MEDS ORDERED: CALCIUM CARBONATE 500 MG CHEWABLE PO SCH (09:00)
[2019-08-09] MEDS ORDERED: PARoxetine 20 MG TAB PO SCH (09:00)
[2019-08-09] MEDS: ALBUTEROL NEBULIZED 2.5 MG/3 ML INHALATION SCH ×2 (09:01→13:10)
[2019-08-09] MEDS: BUDESONIDE 0.5 MG/2 ML NEBU INHALATION SCH (09:01)
--- NOTE | 2019-08-09 10:13 | P.PN ---
Subjective Progress Note Date: 08/09/19 Principal diagnosis: Status post left total knee arthroplasty Patient evaluated at bedside, she is resting comfortably. She's ambulating well with therapy. Her pain is well-controlled. She denies any chest pain or shortness of breath. Objective - Vital Signs Vital signs: Vital Signs Temp 97.8 F 08/09/19 07:00 Pulse 74 08/09/19 09:16 Resp 18 08/09/19 07:00 BP 107/60 08/09/19 07:00 Pulse Ox 90 L 08/09/19 09:51 Intake & Output 08/08/19 08/09/19 08/09/19 18:59 06:59 18:59 Intake Total 1551 225 Output Total 50 Balance 1501 225 Weight 108 kg Intake: IV 1551 Intake, IV Titration 225 Amount Sodium Chloride 0.9% 1, 225 000 ml @ 75 mls/hr IV . [id number] [facility] Rx#:[id number] Output: Estimated Blood Loss 50 Other: Voiding Method Toilet # Voids 0 2 - Exam Left lower extremity: Incision is clean, dry, and intact. The exofin fusion tape is in good condition. There is minimal soft tissue swelling and ecchymosis surrounding the medial and lateral aspects of the incision. Calf is soft, no tenderness with palpation. Plantar flexion, dorsiflexion, EHL, FHL are intact. Sensory exam to light touch throughout the extremity is intact, dorsal pedis pulses 2+. - Labs CBC & Chem 7: 08/09/19 06:17 Labs: Abnormal Lab Results - Last 24 Hours (Table) 08/08/19 08/08/19 08/08/19 Range/Units 13:30 16:45 20:01 WBC (3.8-10.6) k/uL RBC (3.80-5.40) m/uL Hgb (11.4-16.0) gm/dL MCHC (31.0-37.0) g/dL Neutrophils # (1.3-7.7) k/uL POC Glucose (mg/dL) 152 H 170 H 168 H (75-99) mg/dL 08/09/19 08/09/19 Range/Units 06:17 06:54 WBC 10.8 H (3.8-10.6) k/uL RBC 3.68 L (3.80-5.40) m/uL Hgb 10.6 L (11.4-16.0) gm/dL MCHC 30.8 L (31.0-37.0) g/dL Neutrophils # 8.6 H (1.3-7.7) k/uL POC Glucose (mg/dL) 116 H (75-99) mg/dL Assessment and Plan Plan: Assessment: Postop day #1 status post left total knee arthroplasty Plan: Pain control, plan to discharge home on [place] 5 mg/325 mg GI and DVT prophylaxis, Eliquis 2.5mg bid for 2 weeks Wound care instructions discussed, icing and elevating techniques discussed Home physical therapy and nursing after discharge Medical recommendations Plan for discharge home today Time with Patient: Less than 30
--- NOTE | 2019-08-09 10:17 | P.DS ---
Providers Date of admission: 08/08/2019 Expected date of discharge: 08/09/19 Attending physician: Bobby Garcia Consults: 08/08/19 12:21 Consult Physician Routine Consulting Provider: Bryson Garcia Reason/Comments: medical management Do you want consulting provider notified?: Yes Primary care physician: Bryson Garcia [facility] Course: Date of admission: 08/08/2019 Date of discharge: 08/09/2019 Admission diagnosis: Status post left total knee arthroplasty Discharge diagnosis: Same Attending physician: Dr. Garcia Surgical procedures: Left total knee arthroplasty Brief history: Patient is a 74-year-old female with a history of progressive primary left knee osteoarthritis. At this point patient has failed conservative treatment measures and has opted to proceed with a elective left total knee arthroplasty. Hospital course: Details of patient's surgery can be found in operative report. Patient tolerated the procedure well and was subsequently transported to orthopedic floor. Patient's orthopeidc and medical care was provided daily. Patient had daily laboratory tests performed for evaluation of overall blood counts. Patient had daily physical therapy to include strengthening range of motion as well as education with walker ambulation. Patient had daily CPM usage as part of their physical therapy program. Patient was treated with Xarelto for their postoperative DVT prophylaxis during their inpatient stay. Patient was noted to have a relatively uneventful postoperative course. Patient reported satisfactory pain control with oral pain medications by postoperative day 0. Patient showed satisfactory progress with physical therapy. Patient moved steadily through the program and had no difficulty meeting the goals by postoperative day 1. Given patient's otherwise satisfactory course and having met physical therapy goals, plan is to discharge patient home on postoperative day 1. Discharge condition/disposition: Patient will be discharged home in stable condition. Discharge medications: Instructions are given on resumption of patient's normal daily medications per primary care recommendation, in addition patient will be prescribed [place] 5 mg/325 mg, Colace 100 mg, Eliquis 2.5mg. Discharge instructions: 1. Wound care and infection precautions, keep incision dry and covered while showering, no lotions, creams, moisturizers. No soaking, tubs, pools, hottubs. Do not scrub over the incision. 2. Weight-bear as tolerated with walker / cane until follow-up. 3. Ice and elevate when necessary. Do not exceed 20 minutes per hour with ice pack. 4. Utilize compression sleeve until seen at first follow up appointment. 5. Visiting nursing care. 6. Home physical therapy including home CPM. 7. Pain meds and anticoagulants per prescription. 8. Pain medication has potential to cause constipation. Increase oral fluid and fiber intake. Contact primary care provider if you have not had a bowel movement within 48 hours after discharge 9. No anti-inflammatory medication until discussed at first post operative visit, this including Motrin, Aleve, Mobic, Diclofenac. 10. Follow up in office at 2 weeks postop with Willis Rudolph PA-C 11. Follow up with your primary care doctor 7-10 days after discharge. 12. Contact [facility] with any questions, . Procedures: Left total knee arthroplasty Patient Condition at Discharge: Good Plan - Discharge Summary Discharge Rx Participant: No New Discharge Prescriptions: New Docusate [Colace] 100 mg PO DAILY #30 capsule Apixaban [Eliquis] 2.5 mg PO BID #60 tab Hydrocodone/Acetaminophen [[place] 5-325] 1 - 2 each PO Q6HR PRN #56 tab PRN Reason: Pain No Action Furosemide [Lasix] 20 mg PO DAILY Carvedilol [Coreg] 18.75 mg PO BID PARoxetine HCL [Paxil] 20 mg PO QAM Losartan Potassium [Cozaar] 100 mg PO QAM Lansoprazole 30 mg PO HS Montelukast Sodium [Singulair] 10 mg PO HS Budesonide [Pulmicort] 0.5 mg INHALATION BID metFORMIN HCL [Glucophage] 500 mg PO 1800 Ergocalciferol (Vitamin D2) [Vitamin D2] 50,000 unit PO WE Albuterol Nebulized [Ventolin Nebulized] 2.5 mg INHALATION TID Rosuvastatin Calcium [Crestor] 5 mg PO DAILY Latanoprost/Pf [Latanoprost 0.005% Eye Drop] 1 drop BOTH EYES HS Calcium Carbonate [Calcium] 1,200 mg PO DAILY Fluticasone Nasal [place] [Flonase Nasal [place]] 1 spr EA NOSTRIL BID Azelastine HCl [Astepro] 1 spray NASAL BID Dupilumab [Dupixent] 200 mg SQ Q14D Sucralfate [Carafate] 1 gm PO HS Discharge Medication List Budesonide [Pulmicort] 0.5 mg INHALATION BID 11/23/17 [History] Carvedilol [Coreg] 18.75 mg PO BID 11/23/17 [History] Furosemide [Lasix] 20 mg PO DAILY 11/23/17 [History] Lansoprazole 30 mg PO HS 11/23/17 [History] Losartan Potassium [Cozaar] 100 mg PO QAM 11/23/17 [History] Montelukast Sodium [Singulair] 10 mg PO HS 11/23/17 [History] PARoxetine HCL [Paxil] 20 mg PO QAM 11/23/17 [History] metFORMIN HCL [Glucophage] 500 mg PO 1800 02/24/18 [History] Ergocalciferol (Vitamin D2) [Vitamin D2] 50,000 unit PO WE 04/11/18 [History] Albuterol Nebulized [Ventolin Nebulized] 2.5 mg INHALATION TID 08/01/19 [History] Calcium Carbonate [Calcium] 1,200 mg PO DAILY 08/01/19 [History] Latanoprost/Pf [Latanoprost 0.005% Eye Drop] 1 drop BOTH EYES HS 08/01/19 [History] Rosuvastatin Calcium [Crestor] 5 mg PO DAILY 08/01/19 [History] Azelastine HCl [Astepro] 1 spray NASAL BID 08/02/19 [History] Dupilumab [Dupixent] 200 mg SQ Q14D 08/02/19 [History] Fluticasone Nasal [place] [Flonase Nasal [place]] 1 spr EA NOSTRIL BID 08/02/19 [History] Sucralfate [Carafate] 1 gm PO HS 08/02/19 [History] Apixaban [Eliquis] 2.5 mg PO BID #60 tab 08/09/19 [Rx] Docusate [Colace] 100 mg PO DAILY #30 capsule 08/09/19 [Rx] Hydrocodone/Acetaminophen [[place] 5-325] 1 - 2 each PO Q6HR PRN #56 tab 08/09/19 [Rx] Follow up Appointment(s)/Referral(s): Bryson Garcia MD [Primary Care Provider] - 1 Week Rick Rudolph PAC [PHYSICIAN [facility]] - 08/23/19 2:30 pm Activity/Diet/Wound Care/Special Instructions: Orthopedic Discharge Instructions: 1. Wound care and infection precautions, keep incision dry and covered while showering, no lotions, creams, moisturizers. No soaking, pools, hot tubs. Do not scrub over incision. 2. Weight-bear as tolerated with walker / cane until follow-up. 3. Ice and elevate when necessary. Do not exceed 20 minutes per hour with ice pack. 4. Utilize compression sleeve until seen at first follow up appointment. 5. Pain meds and anticoagulants per prescription. 6. Pain medication has potential to cause constipation. Increase oral fluid and fiber intake. Contact primary care provider if you have not had a bowel movement within 48 hours after discharge. 7. No anti-inflammatory medication until discussed at first post operative visit, this including Motrin, Aleve, Mobic, Diclofenac. 8. Follow up in office at 2 weeks postop with Willis Rudolph PA-C 9. Follow up with your primary care doctor 7-10 days after discharge. 10. Contact [facility] with any questions, . Discharge Disposition: HOME WITH HOME HEALTH SERVICES
--- NOTE | 2019-08-09 11:18 | P.CONS ---
History of Present Illness - Reason for Consult Consult date: 08/09/19 Medical management Requesting physician: Bobby Garcia - Chief Complaint Medical management - History of Present Illness Consultation: (Unable to log into [employer] earlier today.) This is a very pleasant 74-year-old patient of Dr. Bryson Camargo. Chronic stable medical conditions include COPD, diabetes, GERD, hypertension, hyperlipidemia, home oxygen 2 L at night. Patient is of a chronic cough. Patient underwent left total knee arthroplasty. Has some postoperative pain. Otherwise doing well. No nausea vomiting. Did tolerate her breakfast. No chest pain. Did work with therapy. Review of systems: GEN.: None EYES: None HEENT: None NECK: None RESPIRATORY: Chronic cough CARDIOVASCULAR: None GASTROINTESTINAL: Heartburn GENITOURINARY: None MUSCULOSKELETAL: Joint pains LYMPHATICS: None HEMATOLOGICAL: None PSYCHIATRY: None NEUROLOGICAL: None Past medical history to include: COPD, diabetes, GERD, hypertension, hyperlipidemia, osteoarthritis, home oxygen 2 L at night, varicose veins, osteoporosis Social history: Patient smoked pack and half for about 30 years stopped in 2001. No alcohol. Lives with . Physical examination: VITAL SIGNS: 97.8, 74, 18, 107/60, 96% room air GENERAL: BMI 37.9, sitting up in bed comfortable. EYES: Pupils equal. Conjunctiva normal. HEENT: External appearance of nose and ears normal, oral cavity grossly normal. NECK: JVD not raised; masses not palpable. HEART: First and second heart sounds are normal; no edema. LUNGS: Respiratory rate normal; clear to auscultation. ABDOMEN: Soft, nontender, liver spleen not palpable, no masses palpable. PSYCH: Alert and oriented x3; mood and affect normal. MUSCULOSKELETAL: Dressing over the left knee, evidence of OA in the hands NEUROLOGICAL: Cranial nerves grossly intact; no facial asymmetry, power and sensation grossly intact. LYMPHATICS: No lymph nodes palpable in the axilla and neck INVESTIGATIONS, reviewed in the clinical context: White count 10.8 hemoglobin 10.6 platelets 175 Assessment: -Left total knee arthroplasty -Primary osteoarthritis -COPD in an ex-smoker -Diabetes mellitus type 2 on oral hypoglycemic -GERD -Essential hypertension -Hyperlipidemia -Chronic hypoxic respiratory failure on 2 L oxygen at night -Obesity BMI 37.9 Plan: Home medications resumed. Accu-Cheks were followed. Care was discussed with the patient. Questions were answered. Patient's and eliquis for DVT prophylaxis. Patient to follow-up with her PCP upon discharge. Thank you Dr. Camargo Past Medical History Past Medical History: Asthma, COPD, Diabetes Mellitus, GERD/Reflux, Hyperlipidemia, Hypertension, Osteoarthritis (OA) Additional Past Medical History / Comment(s): steroids July 2019,uses 2 liters nc at hs,hx varicose veins, osteoporosis History of Any Multi-Drug Resistant Organisms: None Reported Past Surgical History: Breast Surgery, Hysterectomy, Joint Replacement, Tonsillectomy Additional Past Surgical History / Comment(s): varicose vein removal left leg,left breast bx,rt knee replaced, rotator cuff repair right shoulder, rt small finger with hardware Past Anesthesia/Blood Transfusion Reactions: No Reported Reaction Additional Past Anesthesia/Blood Transfusion Reaction / Comm: no hx blood transfusion Past Psychological History: Anxiety, Depression Smoking Status: Former smoker Past Alcohol Use History: None Reported Additional Past Alcohol Use History / Comment(s): quit smoking 2001,smoked approx 30 yrs 1 / ppd Past Drug Use History: None Reported - Past Family History Mother Family Medical History: Cancer Additional Family Medical History / Comment(s): non hodgkins lymphoma Father Family Medical History: Cancer, Diabetes Mellitus Additional Family Medical History / Comment(s): ruptured aorta repair Medications and Allergies Home Medications Medication Instructions Recorded Confirmed Type Budesonide [Pulmicort] 0.5 mg INHALATION BID 11/23/17 08/08/19 History Carvedilol [Coreg] 18.75 mg PO BID 11/23/17 08/08/19 History Furosemide [Lasix] 20 mg PO DAILY 11/23/17 08/08/19 History Lansoprazole 30 mg PO HS 11/23/17 08/08/19 History Losartan Potassium [Cozaar] 100 mg PO QAM 11/23/17 08/08/19 History Montelukast Sodium [Singulair] 10 mg PO HS 11/23/17 08/08/19 History PARoxetine HCL [Paxil] 20 mg PO QAM 11/23/17 08/08/19 History metFORMIN HCL [Glucophage] 500 mg PO 1800 02/24/18 08/08/19 History Ergocalciferol (Vitamin D2) 50,000 unit PO WE 04/11/18 08/08/19 History [Vitamin D2] Albuterol Nebulized [Ventolin 2.5 mg INHALATION TID 08/01/19 08/08/19 History Nebulized] Calcium Carbonate [Calcium] 1,200 mg PO DAILY 08/01/19 08/08/19 History Latanoprost/Pf [Latanoprost 0.005% 1 drop BOTH EYES HS 08/01/19 08/08/19 History Eye Drop] Rosuvastatin Calcium [Crestor] 5 mg PO DAILY 08/01/19 08/08/19 History Azelastine HCl [Astepro] 1 spray NASAL BID 08/02/19 08/08/19 History Dupilumab [Dupixent] 200 mg SQ Q14D 08/02/19 08/08/19 History Fluticasone Nasal [place] [Flonase 1 spr EA NOSTRIL BID 08/02/19 08/08/19 History Nasal [place]] Sucralfate [Carafate] 1 gm PO HS 08/02/19 08/08/19 History Apixaban [Eliquis] 2.5 mg PO BID #60 tab 08/09/19 Rx Docusate [Colace] 100 mg PO DAILY #30 capsule 08/09/19 Rx Hydrocodone/Acetaminophen [[place] 1 - 2 each PO Q6HR PRN #56 tab 08/09/19 Rx 5-325] Allergies Allergy/AdvReac Type Severity Reaction Status Date / Time amoxicillin Allergy Itching Verified 08/01/19 15:35 Physical Exam Vitals: Vital Signs Temp Pulse Pulse Resp BP Pulse Ox 08/09/19 09:51 90 L 08/09/19 09:16 74 08/09/19 09:02 70 08/09/19 07:00 97.8 F 74 18 107/60 96 08/09/19 01:12 98 F 77 16 135/64 92 L 08/08/19 20:36 75 18 08/08/19 20:24 72 18 08/08/19 19:14 97.9 F 70 16 159/79 95 08/08/19 16:21 68 130/82 95 08/08/19 16:06 68 129/82 95 08/08/19 15:53 71 124/74 95 08/08/19 15:36 66 132/85 94 L 08/08/19 15:21 69 135/84 96 08/08/19 15:06 74 148/93 96 08/08/19 14:51 67 137/86 97 08/08/19 14:36 68 133/67 94 L 08/08/19 14:21 98.4 F 63 18 124/76 94 L 08/08/19 13:55 70 16 110/73 96 08/08/19 13:39 71 16 117/67 96 08/08/19 13:24 66 16 112/66 96 08/08/19 13:08 64 16 108/62 95 08/08/19 12:52 67 16 101/61 95 08/08/19 12:37 97.4 F L 70 16 103/50 92 L Intake and Output 08/08/19 08/09/19 08/09/19 22:59 06:59 14:59 Intake Total 225 Balance 225 Intake: Intake, IV Titration 225 Amount Sodium Chloride 0.9% 1, 225 000 ml @ 75 mls/hr IV . [id number] [facility] Rx#:[id number] Other: Voiding Method Toilet # Voids 2 Results CBC & Chem 7: 08/09/19 06:17 Labs: Abnormal Lab Results - Last 24 Hours (Table) 08/08/19 08/08/19 08/08/19 Range/Units 13:30 16:45 20:01 WBC (3.8-10.6) k/uL RBC (3.80-5.40) m/uL Hgb (11.4-16.0) gm/dL MCHC (31.0-37.0) g/dL Neutrophils # (1.3-7.7) k/uL POC Glucose (mg/dL) 152 H 170 H 168 H (75-99) mg/dL 08/09/19 08/09/19 Range/Units 06:17 06:54 WBC 10.8 H (3.8-10.6) k/uL RBC 3.68 L (3.80-5.40) m/uL Hgb 10.6 L (11.4-16.0) gm/dL MCHC 30.8 L (31.0-37.0) g/dL Neutrophils # 8.6 H (1.3-7.7) k/uL POC Glucose (mg/dL) 116 H (75-99) mg/dL
[2019-08-09 11:54] LABS: Glucose,Whole Blood 71 mg/dL (75-99)
--- NOTE | 2019-08-09 13:09 | P.PN ---
Progress Note - Text 08/09 638am 74-year-old female status post total knee replacement by Dr. Camargo. Patient has an On-Q pump for postop pain control with the solution running at 8 mL an hour with a VAS of 5. Plan to continue On-Q pump infusion at 8 mL an hour
[2019-08-09 13:13] VITALS: PULSE 73
[2019-08-09 15:33] LABS: Hemoglobin A1C 6.4 % (4.0-6.0)
[2019-08-09] MEDS ORDERED: metFORMIN 500 MG TAB PO SCH (18:00)
== END 2019-08-09 14:12 | disposition home health service (06) ==
LOC: OR 09:10 → 4SSUR 12:15 → OR 08-09 14:12
PROVIDERS: ATTEND Orthopaedic Surgery
DX: M17.12 Unilateral primary osteoarthritis, left knee (principal); I10 Essential (primary) hypertension; E78.5 Hyperlipidemia, unspecified; J44.9 Chronic obstructive pulmonary disease, unspecified; E11.9 Type 2 diabetes mellitus without complications; K21.9 Gastro-esophageal reflux disease without esophagitis; M81.0 Age-related osteoporosis without current pathological fracture; I83.90 Asymptomatic varicose veins of unspecified lower extremity; E66.9 Obesity, unspecified; I25.10 Atherosclerotic heart disease of native coronary artery without angina pectoris; J96.11 Chronic respiratory failure with hypoxia; F41.9 Anxiety disorder, unspecified; F32.9 Major depressive disorder, single episode, unspecified; Z88.0 Allergy status to penicillin; Z87.891 Personal history of nicotine dependence; Z79.51 Long term (current) use of inhaled steroids; Z79.02 Long term (current) use of antithrombotics/antiplatelets; Z79.84 Long term (current) use of oral hypoglycemic drugs; Z88.1 Allergy status to other antibiotic agents; Z90.710 Acquired absence of both cervix and uterus; Z90.89 Acquired absence of other organs; Z98.890 Other specified postprocedural states; Z96.651 Presence of right artificial knee joint; Z83.3 Family history of diabetes mellitus; Z80.7 Family history of other malignant neoplasms of lymphoid, hematopoietic and related tissues; Z82.49 Family history of ischemic heart disease and other diseases of the circulatory system; Z79.01 Long term (current) use of anticoagulants; Z83.6 Family history of other diseases of the respiratory system; Z68.37 Body mass index [BMI] 37.0-37.9, adult
CPT/HCPCS: 94640 ×3; 94760; 97161; 64448; 76942; 85025; 85610; 88300; 83036; 73560; 27447; C1713; C1776; J2250; J0171; J1100; J0690 ×3; J2405; J2001; J3010; J1885; J2795 ×2; J2370; J2704; J0735

== ENCOUNTER → 2020-01-09 | Outpatient (CLI) | payer MEDICARE ==
[~2020-01-09] MED LIST changes: -ACETAMINOPHEN TAB 500 MG TAB PO ONE; +DENOSUMAB 60 MG/ML 1 ML SYRINGE SQ NR; -DEXAMETHASONE SOD PHOSPHATE 10 MG/ML 1 ML VIAL IV ONE; -HYDROmorphone 0.5 MG/0.5 ML SYRINGE IVP PRN; -LIDOCAINE 1% 20 ML VIAL (10MG/ML) FOR IV START INTRADERMA PRN; -MELOXICAM 7.5 MG TAB PO ONE; -MIDAZOLAM 2 MG/2 ML VIAL IV PRN; -ONDANSETRON 4 MG/2 ML VIAL IVP ONE; -SCOPOLAMINE 1.5MG/72HR PATCH TRANSDERM ONE; -TRANEXAMIC ACID 1,000 MG in SODIUM CHLORIDE 0.9% 100 ML IVPB ONE
[2020-01-09 14:53] VITALS: BP 126/80; PULSE 67; RESP 16; TEMP 97.9
== END | disposition home or self-care (01) ==
LOC: PROCWHC3 14:20
PROVIDERS: ATTEND Internal Medicine Endocrinology, Diabetes & Metabolism
DX: M81.0 Age-related osteoporosis without current pathological fracture (principal)
CPT/HCPCS: 96372; J0897

== ENCOUNTER → 2020-01-11 | Outpatient (CLI) | payer MEDICARE ==
[2020-01-11 16:42] LABS: African American GFR (CKD) 85.4 (60.0-200.0); Albumin 4.3 g/dL (3.80-4.90); Albumin/Globulin Ratio 1.79 (1.60-3.17); Anion Gap 7.3 mmol/L (4.00-12.00); BUN/Creat Ratio 21.25 Ratio (12.00-20.00); Carbon Dioxide 30.7 mmol/L (21.6-31.8); Chol/HDL Ratio 2.9; Globulin 2.4 g/dL (1.6-3.3); LDL Cholesterol,Calculated 63.4 mg/dL (0.0-131.0); Non-African American GFR(CKD) 73.7 (60.0-200.0); Potassium 4.6 mmol/L (3.5-5.5); Total Bilirubin 0.4 mg/dL (0.3-1.2); Total Protein 6.7 g/dL (6.2-8.2); VLDL Calculation 29.6 mg/dL (5.00-40.00)
[2020-01-11 18:22] LABS: Urine Creatinine 60.6 mg/dL
[2020-01-11 19:13] LABS: Hemoglobin A1C 6.2 % (4.0-6.0)
== END | disposition home or self-care (01) ==
LOC: LABWHC1 08:08
PROVIDERS: ATTEND Internal Medicine Endocrinology, Diabetes & Metabolism
DX: E11.9 Type 2 diabetes mellitus without complications (principal)
CPT/HCPCS: 36415; 80053; 80061; 82043; 82570; 83036; 84443

== ENCOUNTER → 2020-08-20 | Outpatient (CLI) | payer MEDICARE ==
[2020-08-20 15:04] LABS: African American GFR (CKD) 73.5 (60.0-200.0); Albumin 4.8 g/dL (3.80-4.90); Albumin/Globulin Ratio 2.4 (1.60-3.17); Anion Gap 8.5 mmol/L (4.00-12.00); BUN/Creat Ratio 16.67 Ratio (12.00-20.00); Calcium 9.7 mg/dL (8.7-10.3); Carbon Dioxide 28.5 mmol/L (21.6-31.8); Chol/HDL Ratio 2.98; Non-African American GFR(CKD) 63.4 (60.0-200.0); Potassium 4.6 mmol/L (3.5-5.5); Total Bilirubin 0.3 mg/dL (0.2-1.2); Total Protein 6.8 g/dL (6.2-8.2)
[2020-08-20 17:21] LABS: Hemoglobin A1C 5.8 % (4.0-6.0)
== END | disposition home or self-care (01) ==
LOC: LABWHC1 08:39
PROVIDERS: ATTEND Internal Medicine Endocrinology, Diabetes & Metabolism
DX: E11.9 Type 2 diabetes mellitus without complications (principal)
CPT/HCPCS: 36415; 80053; 80061; 82043; 82570; 83036; 84443

== ENCOUNTER → 2020-09-19 | Outpatient (CLI) | payer MEDICARE ==
[2020-09-19 13:57] VITALS: BP 163/83; PULSE 73; RESP 16; TEMP 98.2
== END | disposition home or self-care (01) ==
LOC: PROCWHC3 13:45
PROVIDERS: ATTEND Internal Medicine Endocrinology, Diabetes & Metabolism
DX: M81.0 Age-related osteoporosis without current pathological fracture (principal)
CPT/HCPCS: 96372; J0897

== ENCOUNTER → 2021-03-25 | Outpatient (CLI) | payer MEDICARE ==
[2021-03-25 13:42] VITALS: BP 144/80; PULSE 76; RESP 16; TEMP 98.2
== END ==
LOC: PROCWHC3 13:22
PROVIDERS: ATTEND Internal Medicine Endocrinology, Diabetes & Metabolism
DX: M81.0 Age-related osteoporosis without current pathological fracture (principal); Z88.1 Allergy status to other antibiotic agents; Z87.891 Personal history of nicotine dependence
CPT/HCPCS: 96372; J0897

== ENCOUNTER → 2021-12-31 | Outpatient (CLI) | payer MEDICARE ==
[2021-12-31 16:09] LABS: ALT 24 U/L (8-44); AST 22 U/L (13-35); African American GFR (CKD) 83.7 (60.0-200.0); Albumin 4.5 g/dL (3.8-4.9); Albumin/Globulin Ratio 1.73 (1.60-3.17); Alkaline Phosphatase 79 U/L (41-126); BUN/Creat Ratio 19.15 Ratio (12.00-20.00); Blood Urea Nitrogen 15.4 mg/dL (9.0-27.0); Calcium 9.8 mg/dL (8.7-10.3); Carbon Dioxide 28.1 mmol/L (20.0-27.5); Chloride 97 mmol/L (96-109); Chol/HDL Ratio 3.39 Ratio; Globulin 2.6 g/dL (1.6-3.3); Glucose 111 mg/dL (70-110); LDL Cholesterol,Calculated 81.8 mg/dL (0.0-131.0); Non-African American GFR(CKD) 72.2 (60.0-200.0); Potassium 4.6 mmol/L (3.5-5.5); Sodium 137 mmol/L (135-145); Total Protein 7.1 g/dL (6.2-8.2)
[2021-12-31 20:18] LABS: Microalbumin Creatinine Ratio <30 mg/g Creat (0-30); Urine Creatinine 48.2 mg/dL (28.0-217.0)
== END | disposition home or self-care (01) ==
LOC: LABWHC1 08:11
PROVIDERS: ATTEND Internal Medicine Endocrinology, Diabetes & Metabolism
DX: E11.9 Type 2 diabetes mellitus without complications (principal)
CPT/HCPCS: 36415; 80053; 80061; 82043; 82570; 83036; 84443

== ENCOUNTER → 2022-02-09 | Outpatient (CLI) | payer MEDICARE ==
[2022-02-09 13:15] VITALS: BP 139/84; PULSE 79; RESP 16; TEMP 98.1
== END ==
LOC: PROCWHC3 12:55
PROVIDERS: ATTEND Internal Medicine Endocrinology, Diabetes & Metabolism
DX: M81.0 Age-related osteoporosis without current pathological fracture (principal); E11.65 Type 2 diabetes mellitus with hyperglycemia; Z87.891 Personal history of nicotine dependence; Z79.84 Long term (current) use of oral hypoglycemic drugs; Z88.1 Allergy status to other antibiotic agents
CPT/HCPCS: 96372; J0897

== ENCOUNTER → 2022-07-28 | Outpatient (CLI) | payer MEDICARE ==
[2022-07-28 14:50] LABS: ALT 37 U/L (8-44); AST 23 U/L (13-35); African American GFR (CKD) 88.5 (60.0-200.0); Albumin 4.1 g/dL (3.8-4.9); Albumin/Globulin Ratio 1.68 (1.60-3.17); Alkaline Phosphatase 72 U/L (41-126); BUN/Creat Ratio 22.28 Ratio (12.00-20.00); Calcium 9.2 mg/dL (8.7-10.3); Carbon Dioxide 30.1 mmol/L (20.0-27.5); Chloride 99 mmol/L (96-109); Chol/HDL Ratio 2.94 Ratio; Globulin 2.5 g/dL (1.6-3.3); Glucose 111 mg/dL (70-110); LDL Cholesterol,Calculated 69.2 mg/dL (0.0-131.0); Non-African American GFR(CKD) 76.4 (60.0-200.0); Sodium 139 mmol/L (135-145); Total Protein 6.6 g/dL (6.2-8.2)
== END | disposition home or self-care (01) ==
LOC: LABWHC1 08:20
PROVIDERS: ATTEND Internal Medicine Endocrinology, Diabetes & Metabolism
DX: E11.65 Type 2 diabetes mellitus with hyperglycemia (principal); M81.0 Age-related osteoporosis without current pathological fracture
CPT/HCPCS: 36415; 80053; 80061; 82043; 82306; 82523; 82570; 83036; 83970; 84443

== ENCOUNTER → 2022-08-07 | Outpatient (CLI) | payer MEDICARE ==
[2022-08-07 15:25] LABS: Basophils # (A) 0.04 X 10*3/uL (0.00-0.10); Basophils % (A) 0.6 %; Eosinophils # (A) 0.16 X 10*3/uL (0.04-0.35); Eosinophils % (A) 2.2 %; HCT 39.1 % (37.2-46.3); HGB 11.9 g/dL (12.0-15.0); Immature Grans, Automated 1.1 %; Lymphocytes # (A) 1.95 X 10*3/uL (0.90-5.00); Lymphocytes % (A) 26.9 %; MCH 28.8 pg (27.0-32.0); MCHC 30.4 g/dL (32.0-37.0); MCV 94.7 fL (80.0-97.0); Mean Platelet Volume 9.1 fL (9.5-12.2); Monocytes # (A) 0.58 X 10*3/uL (0.20-1.00); NRBC Per 100 WBC 0 /100 WBCS (0.0-0.0); Neutrophils # (A) 4.43 X 10*3/uL (1.80-7.70); Neutrophils % (A) 61.2 %; Platelet Count 245 X 10*3/uL (140-440); RBC 4.13 X 10*6/uL (4.10-5.20); RDW 14.3 % (11.5-14.5); WBC 7.24 X 10*3/uL (4.50-10.00)
[2022-08-07 16:45] LABS: ALT 31 U/L (8-44); AST 26 U/L (13-35); African American GFR (CKD) 83.6 (60.0-200.0); Albumin 4.2 g/dL (3.8-4.9); Albumin/Globulin Ratio 1.62 (1.60-3.17); Alkaline Phosphatase 57 U/L (41-126); BUN/Creat Ratio 15.13 Ratio (12.00-20.00); Blood Urea Nitrogen 12.1 mg/dL (9.0-27.0); Calcium 9.5 mg/dL (8.7-10.3); Carbon Dioxide 27.8 mmol/L (20.0-27.5); Chloride 101 mmol/L (96-109); Chol/HDL Ratio 3.28 Ratio; Globulin 2.6 g/dL (1.6-3.3); Glucose 125 mg/dL (70-110); LDL Cholesterol,Calculated 75.4 mg/dL (0.0-131.0); Non-African American GFR(CKD) 72.1 (60.0-200.0); Potassium 4.6 mmol/L (3.5-5.5); Sodium 140 mmol/L (135-145); Total Protein 6.8 g/dL (6.2-8.2)
== END | disposition home or self-care (01) ==
LOC: LABWHC1 08:27
PROVIDERS: ATTEND Family Medicine
DX: Z00.00 Encounter for general adult medical examination without abnormal findings (principal); Z11.59 Encounter for screening for other viral diseases
CPT/HCPCS: 36415; 80053; 80061; 84443; 85025; 86803

== ENCOUNTER → 2022-08-13 | Outpatient (CLI) | payer MEDICARE ==
[2022-08-13 12:40] VITALS: BP 148/89; PULSE 84; RESP 16; TEMP 98.2
== END ==
LOC: PROCWHC3 12:24
PROVIDERS: ATTEND Internal Medicine Endocrinology, Diabetes & Metabolism
DX: M81.0 Age-related osteoporosis without current pathological fracture (principal); Z88.0 Allergy status to penicillin; Z87.891 Personal history of nicotine dependence
CPT/HCPCS: 96372; J0897

== ENCOUNTER 2023-05-21 10:22 | Day surgery (SDC) | payer MEDICARE ==
[2023-01-27 09:11] LABS: ALT 37 U/L (4-34); AST 36 U/L (14-36); African American GFR (CKD) >90 (>60 ml/min/1.73 sqM); Albumin 4.2 g/dL (3.5-5.0); Alkaline Phosphatase 74 U/L (38-126); Anion Gap 10 mmol/L; Blood Urea Nitrogen 18 mg/dL (7-17); Calcium 9.4 mg/dL (8.4-10.2); Carbon Dioxide 33 mmol/L (22-30); Chloride 96 mmol/L (98-107); Glucose 132 mg/dL (74-99); Non-African American GFR(CKD) 78 (>60 ml/min/1.73 sqM); Potassium 4.8 mmol/L (3.5-5.1); Sodium 139 mmol/L (137-145); Total Bilirubin 0.4 mg/dL (0.2-1.3); Total Protein 7.2 g/dL (6.3-8.2)
[2023-01-28 00:21] LABS: C-Peptide 9.77 ng/mL (0.81-3.85); LDL Cholesterol,Calculated 75.1 mg/dL (0.0-131.0)
[2023-01-28 00:37] LABS: Urine Creatinine 50.7 mg/dL (28.0-217.0)
[2023-02-04 13:54] LABS: Creatinine Urine Random 48 mg/dL (20-275); N-Telopeptides/Creat Ratio, Ur 23
[2023-05-19 14:27] VITALS: BMI 43.1
[~2023-05-21 10:22] MED LIST changes: -DENOSUMAB 60 MG/ML 1 ML SYRINGE SQ NR; +LACTATED RINGERS 1,000 ML IV SCH
[2023-05-21 11:03] VITALS: TEMP 98.2
[2023-05-21 11:03] LABS: Glucose,Whole Blood 113 mg/dL (70-110)
[2023-05-21] MEDS ORDERED: PROPOFOL 10 MG/ML 20 ML VIAL IV ONE (11:21)
--- NOTE | 2023-05-21 11:38 | P.PCN ---
Date of Procedure: 05/21/23 Procedure(s) Performed: BRIEF HISTORY: Patient is a 78-year-old pleasant male scheduled for an elective colonoscopy as a part of history of colon polyps. Last colonoscopy was 5 years ago. PROCEDURE PERFORMED: Colonoscopy with snare polypectomy. PREOPERATIVE DIAGNOSIS: History of colon polyps. IV sedation per Anesthesia. PROCEDURE: After informed consent was obtained, the patient, was brought into the endoscopy unit. IV sedation was administered by Anesthesia under continuous monitoring. Digital rectal examination was normal. Initially the Olympus CF-160 flexible video colonoscope was then inserted in the rectum, gradually advanced into the cecum without any difficulty. Careful examination was performed as the scope was gradually being withdrawn. Ileocecal valve and the appendiceal orifice were visualized and appeared normal. Prep was excellent. Mucosa of the cecum had a 1 cm flat polyp removed by snare polypectomy. In the transverse colon there was a 3 mm polyp that was removed by snare polypectomy. Rest of the, ascending colon, transverse colon, descending colon, sigmoid colon, and rectum appeared normal. In the rectum there were 4 small polyps measuring between 3-4 mm in size all of which were removed by cold snare polypectomy Retroflexion was performed in the rectum and no lesions were seen. The patient tolerated the procedure well. IMPRESSION: 1 cm flat cecal polyp status post polypectomy 3 mm as well as colon polyp status post polypectomy 4 small polyps in the rectum measuring between 3-4 mm in size status post snare polypectomy RECOMMENDATIONS: Findings of this examination were discussed with the patient as well as a family. She was advised to follow with the biopsy results and have a repeat colonoscopy in 3-5 years..
[2023-05-21 11:52] VITALS: RESP 16
[2023-05-21 12:14] VITALS: BP 137/82; PULSE 60
== END 2023-05-21 12:19 | disposition home or self-care (01) ==
LOC: ORWHC2ENDO 10:22
PROVIDERS: ATTEND Internal Medicine Gastroenterology
DX: Z12.11 Encounter for screening for malignant neoplasm of colon (principal); D12.0 Benign neoplasm of cecum; D12.8 Benign neoplasm of rectum; I10 Essential (primary) hypertension; E78.5 Hyperlipidemia, unspecified; J45.909 Unspecified asthma, uncomplicated; F17.200 Nicotine dependence, unspecified, uncomplicated; K21.9 Gastro-esophageal reflux disease without esophagitis; E66.01 Morbid (severe) obesity due to excess calories; Z79.899 Other long term (current) drug therapy; Z88.0 Allergy status to penicillin; Z86.010 Personal history of colon polyps; Z68.41 Body mass index [BMI] 40.0-44.9, adult
CPT/HCPCS: 82523 ×2; 88305; 80061; 80053; 84443; 82306; 84681; 83970; 82043; 82570; 83036; 45385; J2704

== ENCOUNTER → 2023-08-16 | Outpatient (CLI) | payer MEDICARE ==
[2023-08-16 12:31] LABS: BUN/Creat Ratio 18.38 Ratio (12.00-20.00); Blood Urea Nitrogen 14.7 mg/dL (9.0-27.0); Chloride 102 mmol/L (96-109); Chol/HDL Ratio 3.77 Ratio; Glucose 134 mg/dL (70-110); LDL Cholesterol,Calculated 77.6 mg/dL (0.0-131.0); Potassium 4.7 mmol/L (3.5-5.5); Sodium 142 mmol/L (135-145)
[2023-08-16 12:32] LABS: ALT 29 U/L (8-44); AST 27 U/L (13-35); Albumin 4.1 g/dL (3.8-4.9); Albumin/Globulin Ratio 1.58 Ratio (1.60-3.17); Alkaline Phosphatase 64 U/L (41-126); Calcium 9.3 mg/dL (8.7-10.3); Carbon Dioxide 28.5 mmol/L (21.6-31.8); Globulin 2.6 g/dL (1.6-3.3); Total Bilirubin <0.2 mg/dL (0.3-1.2); Total Protein 6.7 g/dL (6.2-8.2)
[2023-08-16 12:59] LABS: Urine Creatinine 65.1 mg/dL (28.0-217.0)
== END | disposition home or self-care (01) ==
LOC: LABWHC1 08:21
PROVIDERS: ATTEND Internal Medicine Endocrinology, Diabetes & Metabolism
DX: E11.9 Type 2 diabetes mellitus without complications (principal); M81.0 Age-related osteoporosis without current pathological fracture
CPT/HCPCS: 36415; 80053; 80061; 82043; 82306; 82523; 82570; 83036; 83970; 84443

== ENCOUNTER → 2024-02-17 | Outpatient (CLI) | payer MEDICARE ==
[2024-02-17 16:18] LABS: Basophils # (A) 0.03 X 10*3/uL (0.00-0.10); Basophils % (A) 0.4 %; Eosinophils # (A) 0.06 X 10*3/uL (0.04-0.35); Eosinophils % (A) 0.9 %; HCT 38.6 % (37.2-46.3); HGB 12.4 g/dL (12.0-15.0); Lymphocytes # (A) 1.62 X 10*3/uL (0.90-5.00); Lymphocytes % (A) 24.1 %; MCH 29.6 pg (27.0-32.0); MCHC 32.1 g/dL (32.0-37.0); MCV 92.1 FL (80.0-97.0); Mean Platelet Volume 9.2 FL (9.5-12.2); Monocytes # (A) 0.62 X 10*3/uL (0.20-1.00); Monocytes % (A) 9.2 %; NRBC Per 100 WBC 0 X 10*3/uL (0.00-0.01); Neutrophils # (A) 4.33 X 10*3/uL (1.80-7.70); Neutrophils % (A) 64.4 %; Platelet Count 218 X 10*3/uL (140-440); RBC 4.19 X 10*6/uL (4.10-5.20); RDW 13.5 % (11.5-14.5); WBC 6.73 X 10*3/uL (4.50-10.00)
[2024-02-17 16:52] LABS: ALT 36 U/L (8-44); AST 37 U/L (13-35); Albumin 4.4 g/dL (3.8-4.9); Albumin/Globulin Ratio 1.91 Ratio (1.60-3.17); Alkaline Phosphatase 61 U/L (41-126); BUN/Creat Ratio 18.86 Ratio (12.00-20.00); Blood Urea Nitrogen 13.2 mg/dL (9.0-27.0); Calcium 9.5 mg/dL (8.7-10.3); Carbon Dioxide 28.5 mmol/L (21.6-31.8); Chloride 98 mmol/L (96-109); Chol/HDL Ratio 3.41 Ratio; Globulin 2.3 g/dL (1.6-3.3); Glucose 120 mg/dL (70-110); Potassium 4.6 mmol/L (3.5-5.5); Sodium 139 mmol/L (135-145); Total Bilirubin 0.4 mg/dL (0.3-1.2); Total Protein 6.7 g/dL (6.2-8.2)
[2024-02-17 18:18] LABS: Urine Creatinine 47.1 mg/dL (28.0-217.0)
== END | disposition home or self-care (01) ==
LOC: LABWHC1 10:05
PROVIDERS: ATTEND Internal Medicine Endocrinology, Diabetes & Metabolism
DX: Z00.00 Encounter for general adult medical examination without abnormal findings (principal); E11.65 Type 2 diabetes mellitus with hyperglycemia; M81.0 Age-related osteoporosis without current pathological fracture
CPT/HCPCS: 36415; 80053; 80061; 82043; 82306; 82523; 82570; 83036; 83970; 84443; 85025